=== PATIENT | female | born 1980 | race Caucasian/White ===

== ENCOUNTER 2019-11-22 03:55 | Emergency (ER) | payer OTHER, SELFPAY ==
[~2019-11-22] VITALS: Ht 152.4 cm; Wt 83.9 kg
[2019-11-22 04:00] VITALS: Ht 152.4 cm; Wt 83.9 kg
[2019-11-22 05:00] VITALS: BP 128/73
== END 2019-11-22 05:00 | disposition home or self-care (01) ==
LOC: ED 03:55 → EDBD 03:55 → ED 05:00
DX: Z20.828 Contact with and (suspected) exposure to other viral communicable diseases (principal); R05 Cough; I10 Essential (primary) hypertension; E11.9 Type 2 diabetes mellitus without complications
CPT/HCPCS: U0003-CS